=== PATIENT | female | born 1945 | race Hispanic/Latino ===

== ENCOUNTER 2019-09-23 05:54 | Day surgery (SDC) | payer OTHER, MEDICARE ==
[~2019-09-23] VITALS: Ht 144.8 cm; Wt 70.3 kg
[~2019-09-23 05:54] MED LIST: ATOR40TA71 PO; DULO30CA52 PO; ERGO500014 PO; FENO145T26 PO; FURO20TA4 PO; LATA7.5D OP; LISI2.5T2 PO; METF-444 PO; TRIA15CR48 TP
[2019-09-23] MEDS ORDERED: SODIUM CHLORIDE 0.9% 1000ML 1,000 ML IV ONE (06:20)
[2019-09-23 07:15] VITALS: BP 123/67
[2019-09-23] MEDS ORDERED: PHENYLEPHRINE HCL 10 MG/ML 1ML VIAL IV ONE (07:48)
[2019-09-23] MEDS ORDERED: PROPOFOL 10 MG/ML 20ML VIAL IV ONE (07:48)
[2019-09-23 08:43] VITALS: BP 116/52
[2019-09-23 08:48] VITALS: BP 111/68
[2019-09-23 08:53] VITALS: BP 118/62
[2019-09-23 08:58] VITALS: BP 122/68
== END 2019-09-23 09:25 | disposition home or self-care (01) ==
LOC: DAH 05:54 → ENDO 05:54
PROVIDERS: ATTEND Internal Medicine
DX: D50.9 Iron deficiency anemia, unspecified (principal); K62.1 Rectal polyp; K29.50 Unspecified chronic gastritis without bleeding; K57.30 Diverticulosis of large intestine without perforation or abscess without bleeding; F41.9 Anxiety disorder, unspecified; F32.9 Major depressive disorder, single episode, unspecified; I10 Essential (primary) hypertension; E78.5 Hyperlipidemia, unspecified; E11.9 Type 2 diabetes mellitus without complications; Z80.0 Family history of malignant neoplasm of digestive organs; Z90.710 Acquired absence of both cervix and uterus; Z98.890 Other specified postprocedural states
CPT/HCPCS: 43239; 45380; 82948 ×2; A4215; A4221; A4222; A4223; A4606; A4620; A4663; J2370; J2704; J7030

== ENCOUNTER → 2020-01-28 | Outpatient (CLI) | payer OTHER, MEDICARE | END | disposition home or self-care (01) | LOC: RAH 09:25 | PROVIDERS: ATTEND Internal Medicine Cardiovascular Disease | DX: I08.1 Rheumatic disorders of both mitral and tricuspid valves (principal); I27.29 Other secondary pulmonary hypertension | CPT/HCPCS: 93306; 93356 ==

== ENCOUNTER → 2020-03-16 | Day surgery (SDC) | payer OTHER, MEDICARE ==
[2020-03-12 13:45] VITALS: BP 99/56
[2020-03-16] VITALS (27 sets, daily range): BP systolic 103–149; BP diastolic 47–88
[~2020-03-16] VITALS: Ht 149.9 cm; Wt 72.1 kg
[~2020-03-16] MED LIST changes: +BUDE10.2 IH; +DEXTROSE 50%-WATER 50 ML DISP.SYRIN IV PRN; +ESOM40CA54 PO; +FENTANYL CITRATE PF 50 MCG/1 ML 2ML VIAL ONE; +FUROSEMIDE 10 MG/ML 4ML VIAL ONE; +GLUCAGON 1MG KIT 1 MG ML IM PRN; +HEPARIN SODIUM 1000UNIT/ML 10ML VIAL ONE; +INSULIN HUMULIN R 100 UNIT/ML 3ML SQ SCH; +IOHEXOL 350 MG/ML 100ML INFUS..BTL IV ONE; +IOHEXOL-350 50ML VIAL IV ONE; +LEVA1.255 IH; +LIDOCAINE HCL 2% 20ML ONE; +LIDOCAINE HCL 2% VISCOUS 15 ML UDCUP PO SCH; +LISI1TAB32 PO; +LISI1TAB51 PO; -LISI2.5T2 PO; +METO-391 PO; +MIDAZOLAM HCL 1 MG/ML 2ML VIAL ONE; +NITROGLYCERIN 2 MG/VIAL VIAL IV ONE; +SODIUM CHLORIDE 0.9% 1000ML 1,000 ML IV ONE; +SODIUM CHLORIDE 0.9% 500ML 500 ML IV SCH; -TRIA15CR48 TP
[2020-03-16 07:09] LABS: BASOPHILS % (AUTO) 0.8 % (0.0-5.0); EOSINOPHILS % (AUTO) 2.9 % (0.0-8.0); LYMPHOCYTES % (AUTO) 15.7 % (21.0-51.0); MEAN CORPUSCULAR HEMOGLOBIN 24.5 pg (27.0-33.0); MEAN CORPUSCULAR HGB CONC 30.3 g/dL (32.0-36.0); MONOCYTES % (AUTO) 6.5 % (3.0-13.0); NEUTROPHILS % (AUTO) 71.7 % (40.0-77.0); PLATELET COUNT (AUTO) 501 K/uL (130-400); RED BLOOD CELL COUNT(AUTO) 4.32 MIL/uL (4.00-5.50); RED CELL DISTRIBUTION WIDTH 15.5 % (11.0-15.5); WHITE BLOOD COUNT (AUTO) 9.5 K/uL (4.8-10.8)
[2020-03-16 07:15] LABS: CREATININE 1.1 mg/dL (0.5-1.5); POTASSIUM 3.8 mmol/L (3.5-5.1)
[2020-03-16 07:34] LABS: INR 1.01 (0.85-1.15); PARTIAL THROMBOPLASTIN TIME 22.7 SEC (26.3-35.5); PROTHROMBIN TIME 10.9 SEC (9.6-11.6)
--- NOTE | 2020-03-16 11:00 | NUR ---
REPORT RECEIVED REPORT FROM SOCRATES BOSE RN. PT HAD ALISHA DONE AND IS SCHEDULED FOR LHC/RHC. PT NPO, HAS SALINE LOCK TO RT HAND. PT IN NO DISTRESS. WILL TAKE OVER PATIENT CARE. CARDIOVASCULAR SURGEON STILL PENDING TO SEE.
--- NOTE | 2020-03-16 11:55 | NUR ---
TELEPHONE CONSENT RECEIVED TELEPHONE CONSENT FROM DAUGHTER TUYET ABBOTT. SECOND WITNESS ARACELI Vivar RN
--- NOTE | 2020-03-16 15:30 | NUR ---
[employer] pt taken to [employer] [employer] via bed. pt in no distress.
--- NOTE | 2020-03-16 15:41 | NUR ---
report report given to rodrick yanez rn.
--- NOTE | 2020-03-16 18:15 | NUR ---
RECEIVED FROM GEOSCIENCES PROFESSOR VIA BED ACCOMPANIED BY Pelon VELÁZQUEZ, RN AND Nirmala BOES RN. PT. AAOX3, RESP.'S EVEN AND UNLABORED. DENIES ANY C/O SOB, DENIES ANY CURRENT PAIN. INSTRUCTED ON STRICT BR PER MD ORDERS, VERBALIZED UNDERSTANDING. RIGHT GROIN WITH DRSG IN PLACE, D/I, AREA SOFT; NO ECCHYMOSIS OR HEMATOMA NOTED. FEET WARM, PP'S (+) BILATERALLY; DENIES ANY C/O NUMBNESS OR TINGLING TO FEET. BED LOW, SIDE RAILS UP X3. PLACED IN REVERSE [place] POSITION. CALL LIGHT WITHIN REACH, VERBALIZED ABILITY TO USE.
== END ==
LOC: EDSTATUS 03-11 13:00 → DAH 06:30
PROVIDERS: ATTEND Internal Medicine Cardiovascular Disease
DX: I34.2 Nonrheumatic mitral (valve) stenosis (principal); I25.10 Atherosclerotic heart disease of native coronary artery without angina pectoris; I10 Essential (primary) hypertension; E78.5 Hyperlipidemia, unspecified; E11.9 Type 2 diabetes mellitus without complications; J44.9 Chronic obstructive pulmonary disease, unspecified; Z98.890 Other specified postprocedural states; Z90.710 Acquired absence of both cervix and uterus; Z86.718 Personal history of other venous thrombosis and embolism; Z79.01 Long term (current) use of anticoagulants; Z79.84 Long term (current) use of oral hypoglycemic drugs; Z79.899 Other long term (current) drug therapy; Z95.2 Presence of prosthetic heart valve
CPT/HCPCS: 36415; 80048; 82948 ×2; 85025; 85610; 85730; 93313; 93460; A4215; A4216; A4221; A4222; A4223 ×3; A4606; A4663; C1760; C1894 ×2; J1644; J1940; J2250; J3010; J3490 ×2; J7030; Q9965; Q9967 ×2; 99152; 99153; 99156; 99157

== ENCOUNTER 2020-05-25 15:59 | Inpatient (IN) | payer OTHER, MEDICARE ==
[~2020-05-25] VITALS: Ht 157.5 cm; Wt 65.4 kg
[2020-05-25] VITALS (11 sets, daily range): BP systolic 78–150; BP diastolic 42–84
[~2020-05-25 15:59] MED LIST changes: -DEXTROSE 50%-WATER 50 ML DISP.SYRIN IV PRN; +DIPH25TA51 PO; -ERGO500014 PO; -FENTANYL CITRATE PF 50 MCG/1 ML 2ML VIAL ONE; +FURO40TA7 PO; -FUROSEMIDE 10 MG/ML 4ML VIAL ONE; -GLUCAGON 1MG KIT 1 MG ML IM PRN; -HEPARIN SODIUM 1000UNIT/ML 10ML VIAL ONE; -INSULIN HUMULIN R 100 UNIT/ML 3ML SQ SCH; -IOHEXOL 350 MG/ML 100ML INFUS..BTL IV ONE; -IOHEXOL-350 50ML VIAL IV ONE; -LIDOCAINE HCL 2% 20ML ONE; -LIDOCAINE HCL 2% VISCOUS 15 ML UDCUP PO SCH; -LISI1TAB32 PO; -MIDAZOLAM HCL 1 MG/ML 2ML VIAL ONE; -NITROGLYCERIN 2 MG/VIAL VIAL IV ONE; -SODIUM CHLORIDE 0.9% 1000ML 1,000 ML IV ONE; -SODIUM CHLORIDE 0.9% 500ML 500 ML IV SCH
[2020-05-25 16:31] LABS: BASOPHILS % (AUTO) 0.3 % (0.0-5.0); HEMATOCRIT 25.4 % (36-48); LYMPHOCYTES % (AUTO) 11.6 % (21.0-51.0); MEAN CORPUSCULAR HEMOGLOBIN 29.3 pg (27.0-33.0); MEAN CORPUSCULAR HGB CONC 30.3 g/dL (32.0-36.0); MEAN CORPUSCULAR VOLUME 96.6 fL (79-99); MONOCYTES % (AUTO) 4.4 % (3.0-13.0); NEUTROPHILS % (AUTO) 76.1 % (40.0-77.0); PLATELET COUNT (AUTO) 377 K/uL (130-400); RED BLOOD CELL COUNT(AUTO) 2.63 MIL/uL (4.00-5.50); RED CELL DISTRIBUTION WIDTH 18.1 % (11.0-15.5); WHITE BLOOD COUNT (AUTO) 17.3 K/uL (4.8-10.8)
[2020-05-25 16:41] LABS: CREATININE 1.6 mg/dL (0.5-1.5); POTASSIUM 5.2 mmol/L (3.5-5.1)
[2020-05-25 16:45] LABS: INR 1.18 (0.85-1.15); PARTIAL THROMBOPLASTIN TIME 22.2 SEC (26.3-35.5); PROTHROMBIN TIME 12.7 SEC (9.6-11.6)
[2020-05-25 16:46] LABS: ALBUMIN 1.3 g/dL (3.5-5.0); BILIRUBIN,TOTAL 0.2 mg/dL (0.2-1.0); TOTAL PROTEIN, SERUM 4.9 g/dL (6.0-8.3)
[2020-05-25] MEDS ORDERED: ROCURONIUM 10MG/1ML SYR 10 MG/ML ML ONE ×2 (16:53→18:27)
[2020-05-25] MEDS ORDERED: SUCCINYLCHOLINE CHLORIDE 20 MG/ML 10 ML VIAL ONE (17:21)
[2020-05-25] MEDS ORDERED: ETOMIDATE 2 MG/ML 10 ML VIAL ONE (17:21)
[2020-05-25] MEDS ORDERED: SODIUM BICARB 50MEQ 50ML VIAL 250 ML ONE (17:22)
[2020-05-25] MEDS ORDERED: CEFAZOLIN SODIUM 1 GM VIAL ONE (17:32)
[2020-05-25] MEDS ORDERED: FENTANYL CITRATE PF 50 MCG/1 ML 5ML AMP IV ONE ×2 (18:27→18:42)
[2020-05-25] MEDS ORDERED: VANCOMYCIN PROTOCOL PER PHARMACY IV SCH (19:15)
[2020-05-25] MEDS ORDERED: PROPOFOL 1000 MG/100 ML IV PRN (19:15)
[2020-05-25] MEDS ORDERED: COMPOUND IV REFRIGERATED 1 EACH IVSOLN MISC PRN (20:00)
[2020-05-25] MEDS ORDERED: VANCOMYCIN 1.5 GM in SODIUM CHLORIDE 0.9% 250 ML IV ONE (20:00)
[2020-05-25 20:44] LABS: HEMATOCRIT 39.9 % (36-48); MEAN CORPUSCULAR HEMOGLOBIN 28.9 pg (27.0-33.0); MEAN CORPUSCULAR HGB CONC 33.3 g/dL (32.0-36.0); MEAN CORPUSCULAR VOLUME 86.6 fL (79-99); NUCLEATED RED BLOOD CELLS 0.9 % (0.0-0.19); RED BLOOD CELL COUNT(AUTO) 4.61 MIL/uL (4.00-5.50); RED CELL DISTRIBUTION WIDTH 15.7 % (11.0-15.5); WHITE BLOOD COUNT (AUTO) 16.1 K/uL (4.8-10.8)
[2020-05-25] MEDS ORDERED: EPINEPHRINE 10 MG in SODIUM CHLORIDE 0.9% 250 ML IV SCH ×2 (20:45→21:00)
[2020-05-25 20:52] LABS: CREATININE 1.2 mg/dL (0.5-1.5); POTASSIUM 4.5 mmol/L (3.5-5.1)
[2020-05-25 20:59] LABS: INR 1.26 (0.85-1.15); PROTHROMBIN TIME 13.5 SEC (9.6-11.6)
[2020-05-25 21:08] LABS: PARTIAL THROMBOPLASTIN TIME > 120.0 SEC (26.3-35.5)
[2020-05-25] MEDS: PROPOFOL 1000 MG/100 ML 100 ML IV SCH (21:24)
[2020-05-25 21:34] LABS: ABG BASE EXCESS 3.5 mmol/L (-2.0-3.0); ABG HCO3 26.6 mmol/L (21.0-28.0); ABG OXYGEN SATURATION 96.6 % (95.0-99.0); ABG PCO2 35 mmHg (32-45)
[2020-05-25 21:35] LABS: ABG BASE EXCESS 1.6 mmol/L (-2.0-3.0); ABG HCO3 25.8 mmol/L (21.0-28.0); ABG OXYGEN SATURATION 98.7 % (95.0-99.0); ABG PCO2 39 mmHg (32-45)
[2020-05-25 21:35] LABS: ABG BASE EXCESS 14.4 mmol/L (-2.0-3.0); ABG HCO3 38.6 mmol/L (21.0-28.0); ABG OXYGEN SATURATION 98.2 % (95.0-99.0); ABG PCO2 48 mmHg (32-45)
[2020-05-25 21:35] LABS: ABG BASE EXCESS 4.9 mmol/L (-2.0-3.0); ABG HCO3 28.7 mmol/L (21.0-28.0); ABG OXYGEN SATURATION 97.8 % (95.0-99.0); ABG PCO2 39 mmHg (32-45)
[2020-05-25] MEDS: FLUCONAZOLE 200 MG/NS 100 ML 100 ML IV SCH (21:37)
[2020-05-25 22:45] LABS: APPEARANCE,URINE Clear (CLEAR); BILIRUBIN,URINE Negative (NEGATIVE); COLOR,URINE Yellow (YELLOW); GLUCOSE, URINE (UA) Negative (NEGATIVE); KETONES,URINE Negative (NEGATIVE); LEUKOCYTE ESTERASE ,URINE Small (NEGATIVE); NITRATE,URINE Negative (NEGATIVE); OCCULT BLOOD,URINE Negative (NEGATIVE); PH,URINE 6.5 (5.0-8.0); PROTEIN,URINE POS 1+ mg/dL (NEGATIVE); UROBILINOGEN,URINE 0.2 mg/dL (0.2-1.0)
[2020-05-25 22:59] LABS: BACTERIA,URINE Few /HPF (None Seen); RBC,URINE 0-1 /HPF (0-1)
[2020-05-25 23:00] LABS: FINE GRANULAR CASTS,URINE 0-2 /LPF (None Seen); SQUAMOUS EPITHELIAL CELL,UR 0-2 /HPF (0-2); URIC ACID CRYSTALS,URINE Few /LPF (None Seen); YEAST,URINE BUDDING Few /HPF (None Seen)
[2020-05-25] MEDS ORDERED: ONDANSETRON HCL 4 MG/2 ML VIAL IV PRN (23:45)
[2020-05-26] VITALS (45 sets, daily range): BP systolic 87–162; BP diastolic 50–69
[2020-05-26] MEDS: PROPOFOL 1000 MG/100 ML 100 ML IV SCH ×3 (03:37→21:47)
[2020-05-26] MEDS ORDERED: DEXTROSE 50%-WATER 50 ML DISP.SYRIN IV PRN (04:00)
[2020-05-26] MEDS ORDERED: GLUCAGON 1MG KIT 1 MG ML IM PRN (04:00)
[2020-05-26 06:03] LABS: BASOPHILS % (AUTO) 0.2 % (0.0-5.0); HEMATOCRIT 37.3 % (36-48); LYMPHOCYTES % (AUTO) 7.4 % (21.0-51.0); MEAN CORPUSCULAR HGB CONC 34.3 g/dL (32.0-36.0); MEAN CORPUSCULAR VOLUME 84.6 fL (79-99); NEUTROPHILS % (AUTO) 77.2 % (40.0-77.0); NUCLEATED RED BLOOD CELLS 2.9 % (0.0-0.19); PLATELET COUNT (AUTO) 280 K/uL (130-400); RED BLOOD CELL COUNT(AUTO) 4.41 MIL/uL (4.00-5.50); WHITE BLOOD COUNT (AUTO) 25.7 K/uL (4.8-10.8)
[2020-05-26 06:20] LABS: ALBUMIN 1.3 g/dL (3.5-5.0); BILIRUBIN,TOTAL 0.4 mg/dL (0.2-1.0); CREATININE 1.7 mg/dL (0.5-1.5); MAGNESIUM 1.5 mg/dL (1.80-2.40); POTASSIUM 4.8 mmol/L (3.5-5.1); TOTAL PROTEIN, SERUM 4.4 g/dL (6.0-8.3)
[2020-05-26] MEDS: INSULIN HUMULIN R 100 UNIT/ML 3ML SQ SCH ×4 (06:29→23:43)
[2020-05-26 06:30] LABS: INR 1.14 (0.85-1.15); PARTIAL THROMBOPLASTIN TIME 22.9 SEC (26.3-35.5); PROTHROMBIN TIME 12.2 SEC (9.6-11.6)
[2020-05-26 06:55] LABS: BAND NEUTROPHILS % (MANUAL) 3 % (0-2); LYMPHOCYTES % (MANUAL) 4 % (22-44); MAN.DIFF COMMENT-IMPRESSION MANUAL DIFFERENTIAL; MONOCYTES % (MANUAL) 2 % (2-9); PLATELET MORPHOLOGY COMMENT ADEQUATE; REACTIVE LYMPHOCYTES 9 % (0-0); SEGMENTED NEUTROPHILS % 82 % (40-70)
[2020-05-26] MEDS ORDERED: MAGNESIUM 2GM PREMIX 50ML 50 ML IV ONE (07:20)
[2020-05-26 08:53] LABS: ABG BASE EXCESS 3.2 mmol/L (-2.0-3.0); ABG HCO3 26.8 mmol/L (21.0-28.0); ABG OXYGEN SATURATION 89.2 % (95.0-99.0); ABG PCO2 38 mmHg (32-45)
[2020-05-26] MEDS: FLUCONAZOLE 200 MG/NS 100 ML 100 ML IV SCH (10:43)
[2020-05-26] MEDS: FAMOTIDINE/PF 20 MG/2 ML VIAL IV SCH (10:48)
[2020-05-26] MEDS: FUROSEMIDE 10 MG/ML 4ML VIAL IV SCH ×2 (10:49→21:44)
[2020-05-26] MEDS ORDERED: ASPIRIN 325 MG TABLET PO SCH (15:15)
[2020-05-26] MEDS: HONEY 1 APPL/ML TUBE TP SCH (16:37)
[2020-05-26] MEDS ORDERED: MORPHINE SULFATE 2 MG/ML 1ML SYG IM PRN (18:00)
[2020-05-26 18:26] LABS: APPEARANCE,URINE CLOUDY (CLEAR); BILIRUBIN,URINE NEGATIVE (NEGATIVE); COLOR,URINE YELLOW (YELLOW); GLUCOSE, URINE (UA) NEGATIVE (NEGATIVE); KETONES,URINE NEGATIVE (NEGATIVE); LEUKOCYTE ESTERASE ,URINE MODERATE (NEGATIVE); NITRATE,URINE NEGATIVE (NEGATIVE); OCCULT BLOOD,URINE NEGATIVE (NEGATIVE); PH,URINE 5.5 (5.0-8.0); PROTEIN,URINE NEGATIVE (NEGATIVE); UROBILINOGEN,URINE 0.2 mg/dL (0.2-1.0)
[2020-05-26 18:53] LABS: BACTERIA,URINE Few /HPF (None Seen); RBC,URINE 0-1 /HPF (0-1)
[2020-05-26 18:55] LABS: SQUAMOUS EPITHELIAL CELL,UR Few /HPF (0-2); YEAST,URINE BUDDING Few /HPF (None Seen)
[2020-05-26 18:56] LABS: MUCUS,URINE Rare LPF (None Seen)
[2020-05-26 18:57] LABS: CALCIUM OXALATE CRYSTALS,UR Rare /LPF (None Seen)
[2020-05-26] MEDS: ZOSYN 3.375GM+NS 50ML 50 ML IV SCH (19:13)
[2020-05-26] MEDS: VANCOMYCIN 750MG + NS 250 ML IV SCH ×2 (19:14)
[2020-05-26] MEDS ORDERED: LATANOPROST 2.5 ML DROPS OU SCH (21:00)
[2020-05-26] MEDS: LATANOPROST OP SCH (21:43)
[2020-05-26] MEDS: ATORVASTATIN CALCIUM 40 MG TABLET PO SCH (21:43)
[2020-05-27] VITALS (18 sets, daily range): BP systolic 94–166; BP diastolic 32–67
[2020-05-27] MEDS: PROPOFOL 1000 MG/100 ML 100 ML IV SCH ×2 (03:55→11:27)
[2020-05-27 05:09] LABS: ABG BASE EXCESS 0.1 mmol/L (-2.0-3.0); ABG OXYGEN SATURATION 95.9 % (95.0-99.0); ABG PCO2 33 mmHg (32-45)
[2020-05-27] MEDS: ZOSYN 3.375GM+NS 50ML 50 ML IV SCH ×2 (05:19→18:24)
[2020-05-27 05:22] LABS: MEAN CORPUSCULAR HEMOGLOBIN 29.5 pg (27.0-33.0); MEAN CORPUSCULAR HGB CONC 33.2 g/dL (32.0-36.0); MEAN CORPUSCULAR VOLUME 88.8 fL (79-99); NUCLEATED RED BLOOD CELLS 1.9 % (0.0-0.19); RED BLOOD CELL COUNT(AUTO) 3.49 MIL/uL (4.00-5.50); RED CELL DISTRIBUTION WIDTH 17.8 % (11.0-15.5); WHITE BLOOD COUNT (AUTO) 18.5 K/uL (4.8-10.8)
[2020-05-27] MEDS: INSULIN HUMULIN R 100 UNIT/ML 3ML SQ SCH ×3 (05:23→18:00)
[2020-05-27 05:29] LABS: CREATININE 1.7 mg/dL (0.5-1.5); POTASSIUM 4.2 mmol/L (3.5-5.1)
[2020-05-27] MEDS ORDERED: ASPIRIN 325 MG TABLET PO SCH (09:00)
[2020-05-27] MEDS ORDERED: HEPARIN 25000 UNITS/250 ML D5W 250 ML IV SCH (10:00)
[2020-05-27] MEDS ORDERED: HEPARIN SODIUM 5000UNIT/ML 1ML VIAL ONE (11:15)
[2020-05-27] MEDS: FLUCONAZOLE 200 MG/NS 100 ML 100 ML IV SCH (11:18)
[2020-05-27] MEDS: FUROSEMIDE 10 MG/ML 4ML VIAL IV SCH ×2 (11:19→22:18)
[2020-05-27] MEDS: FAMOTIDINE/PF 20 MG/2 ML VIAL IV SCH (11:19)
[2020-05-27] MEDS ORDERED: FENTANYL CITRATE PF 0.05 MG/ML 1,000 MCG in SODIUM CHLORIDE 0.9% 100 ML IVPB SCH (14:00)
[2020-05-27] MEDS ORDERED: FENTANYL 2500MCG+NS 250ML 250 ML IV SCH (14:15)
[2020-05-27] MEDS ORDERED: MIDAZOLAM HCL 1 MG/ML 5ML VIAL ONE (14:33)
[2020-05-27] MEDS ORDERED: ROCURONIUM 10MG/1ML SYR 10 MG/ML ML ONE ×2 (14:34→14:50)
[2020-05-27] MEDS ORDERED: FENTANYL CITRATE PF 50 MCG/1 ML 5ML AMP IV ONE (15:24)
[2020-05-27 15:40] LABS: ABG BASE EXCESS 2.2 mmol/L (-2.0-3.0); ABG OXYGEN SATURATION 92.7 % (95.0-99.0); ABG PCO2 37 mmHg (32-45)
[2020-05-27] MEDS: HONEY 1 APPL/ML TUBE TP SCH (16:00)
[2020-05-27] MEDS ORDERED: CEFAZOLIN SODIUM 1 GM VIAL ONE (16:23)
[2020-05-27] MEDS ORDERED: PROTAMINE SULFATE 10 MG/ML 5 ML VIAL ONE (16:25)
[2020-05-27] MEDS: VANCOMYCIN 750MG + NS 250 ML IV SCH ×2 (18:24)
[2020-05-27 20:19] LABS: APPEARANCE,URINE Cloudy (CLEAR); BILIRUBIN,URINE Negative (NEGATIVE); COLOR,URINE Yellow (YELLOW); GLUCOSE, URINE (UA) Negative (NEGATIVE); KETONES,URINE Negative (NEGATIVE); LEUKOCYTE ESTERASE ,URINE Small (NEGATIVE); NITRATE,URINE Negative (NEGATIVE); OCCULT BLOOD,URINE Large (NEGATIVE); PROTEIN,URINE Negative (NEGATIVE); UROBILINOGEN,URINE 0.2 mg/dL (0.2-1.0)
[2020-05-27 20:49] LABS: BACTERIA,URINE Few /HPF (None Seen); MUCUS,URINE Few LPF (None Seen); SQUAMOUS EPITHELIAL CELL,UR 0-2 /HPF (0-2); YEAST,URINE BUDDING Moderate /HPF (None Seen)
[2020-05-27] MEDS: CLOPIDOGREL BISULFATE 75 MG TAB PO SCH (22:19)
[2020-05-27] MEDS: LATANOPROST OP SCH (22:19)
[2020-05-27] MEDS: ATORVASTATIN CALCIUM 40 MG TABLET PO SCH (22:19)
[2020-05-28] MEDS: PROPOFOL 1000 MG/100 ML 100 ML IV SCH (01:01)
[2020-05-28] MEDS: INSULIN HUMULIN R 100 UNIT/ML 3ML SQ SCH ×4 (06:00→18:00)
[2020-05-28 07:42] LABS: BASOPHILS % (AUTO) 0.5 % (0.0-5.0); EOSINOPHILS % (AUTO) 0.1 % (0.0-8.0); HEMATOCRIT 29.2 % (36-48); LYMPHOCYTES % (AUTO) 8.2 % (21.0-51.0); MEAN CORPUSCULAR HEMOGLOBIN 29.4 pg (27.0-33.0); MEAN CORPUSCULAR HGB CONC 31.2 g/dL (32.0-36.0); MEAN CORPUSCULAR VOLUME 94.2 fL (79-99); MONOCYTES % (AUTO) 5.7 % (3.0-13.0); NUCLEATED RED BLOOD CELLS 1.8 % (0.0-0.19); PLATELET COUNT (AUTO) 122 K/uL (130-400); RED CELL DISTRIBUTION WIDTH 18.7 % (11.0-15.5); WHITE BLOOD COUNT (AUTO) 17.8 K/uL (4.8-10.8)
[2020-05-28 07:55] LABS: CREATININE 1.4 mg/dL (0.5-1.5); POTASSIUM 4.4 mmol/L (3.5-5.1)
[2020-05-28] MEDS: FAMOTIDINE/PF 20 MG/2 ML VIAL IV SCH (09:45)
[2020-05-28] MEDS: ZOSYN 3.375GM+NS 50ML 50 ML IV SCH ×2 (09:45→18:00)
[2020-05-28] MEDS: CLOPIDOGREL BISULFATE 75 MG TAB PO SCH (09:45)
[2020-05-28] MEDS: FLUCONAZOLE 200 MG/NS 100 ML 100 ML IV SCH (09:45)
[2020-05-28] MEDS: FUROSEMIDE 10 MG/ML 4ML VIAL IV SCH ×2 (09:45→21:21)
[2020-05-28 11:02] LABS: ABG BASE EXCESS -0.1 mmol/L (-2.0-3.0); ABG HCO3 23.5 mmol/L (21.0-28.0); ABG OXYGEN SATURATION 90.5 % (95.0-99.0); ABG PCO2 35 mmHg (32-45)
[2020-05-28] MEDS ORDERED: IPRATROPIUM/ALBUTEROL SULFATE 3 ML SOLUTION IH ONE (11:17)
[2020-05-28] MEDS ORDERED: COMPOUND IV REFRIGERATED 1 EACH IVSOLN MISC PRN (12:15)
[2020-05-28] MEDS ORDERED: FENTANYL CITRATE PF 50 MCG/1 ML 2ML VIAL IVP PRN (14:00)
[2020-05-28] MEDS ORDERED: TRAMADOL HCL 50 MG TABLET PO PRN (14:00)
[2020-05-28] MEDS: CLINIMIX E 5%-15% 2,000 ML IV NR (14:07)
[2020-05-28] MEDS ORDERED: FENTANYL 2500MCG+NS 250ML 250 ML IV SCH (14:15)
[2020-05-28] MEDS: FENTANYL CITRATE PF 50 MCG/1 ML 2ML VIAL IVP PRN (14:37)
[2020-05-28] MEDS: HONEY 1 APPL/ML TUBE TP SCH (17:04)
[2020-05-28 19:55] VITALS: BP 120/72
[2020-05-28] MEDS: LATANOPROST OP SCH (20:30)
[2020-05-28] MEDS: ATORVASTATIN CALCIUM 40 MG TABLET PO SCH (20:31)
[2020-05-28] MEDS: VANCOMYCIN 750MG + NS 250 ML IV SCH ×2 (20:32)
[2020-05-28 20:55] VITALS: BP 130/79
[2020-05-28] MEDS ORDERED: SODIUM CHLORIDE 0.9% 250 ML IV ONE (21:17)
[2020-05-28 21:55] VITALS: BP 116/57
[2020-05-28 22:55] VITALS: BP 125/64
[2020-05-28 23:55] VITALS: BP 118/55
[2020-05-29] VITALS (20 sets, daily range): BP systolic 99–143; BP diastolic 49–98
[2020-05-29 00:41] LABS: ABG BASE EXCESS 2.2 mmol/L (-2.0-3.0); ABG HCO3 26.2 mmol/L (21.0-28.0); ABG OXYGEN SATURATION 96.3 % (95.0-99.0); ABG PCO2 39 mmHg (32-45)
[2020-05-29] MEDS: FENTANYL CITRATE PF 50 MCG/1 ML 2ML VIAL IVP PRN ×3 (02:18→12:03)
[2020-05-29 04:20] LABS: ABG BASE EXCESS 1.5 mmol/L (-2.0-3.0); ABG HCO3 25.1 mmol/L (21.0-28.0); ABG OXYGEN SATURATION 97.9 % (95.0-99.0); ABG PCO2 36 mmHg (32-45)
[2020-05-29] MEDS: ZOSYN 3.375GM+NS 50ML 50 ML IV SCH ×2 (05:08→17:23)
[2020-05-29] MEDS: INSULIN HUMULIN R 100 UNIT/ML 3ML SQ SCH ×4 (05:42→16:43)
[2020-05-29 05:53] LABS: BASOPHILS % (AUTO) 0.3 % (0.0-5.0); EOSINOPHILS % (AUTO) 0.2 % (0.0-8.0); HEMATOCRIT 27.2 % (36-48); LYMPHOCYTES % (AUTO) 7.3 % (21.0-51.0); MEAN CORPUSCULAR HEMOGLOBIN 29.2 pg (27.0-33.0); MEAN CORPUSCULAR HGB CONC 30.9 g/dL (32.0-36.0); MEAN CORPUSCULAR VOLUME 94.4 fL (79-99); MONOCYTES % (AUTO) 5.6 % (3.0-13.0); NEUTROPHILS % (AUTO) 81.7 % (40.0-77.0); NUCLEATED RED BLOOD CELLS 1.6 % (0.0-0.19); PLATELET COUNT (AUTO) 115 K/uL (130-400); RED BLOOD CELL COUNT(AUTO) 2.88 MIL/uL (4.00-5.50); RED CELL DISTRIBUTION WIDTH 18.8 % (11.0-15.5); WHITE BLOOD COUNT (AUTO) 16.3 K/uL (4.8-10.8)
[2020-05-29 06:22] LABS: CREATININE 1.1 mg/dL (0.5-1.5); POTASSIUM 3.2 mmol/L (3.5-5.1)
[2020-05-29] MEDS: CLOPIDOGREL BISULFATE 75 MG TAB PO SCH (07:58)
[2020-05-29] MEDS: ASPIRIN 81MG TAB.CHEW PO SCH (07:59)
[2020-05-29] MEDS: FLUCONAZOLE 200 MG/NS 100 ML 100 ML IV SCH (07:59)
[2020-05-29] MEDS: FAMOTIDINE/PF 20 MG/2 ML VIAL IV SCH (07:59)
[2020-05-29] MEDS: CLINIMIX E 5%-15% 2,000 ML IV NR (09:00)
[2020-05-29] MEDS ORDERED: LIDOCAINE HCL-MPF 1% 2ML VIAL IV PRN (09:45)
[2020-05-29] MEDS ORDERED: POTASSIUM CHLORIDE 20MEQ/100ML 100 ML IV ONE (10:05)
[2020-05-29] MEDS: FUROSEMIDE 10 MG/ML 4ML VIAL IV SCH ×2 (10:12→22:15)
[2020-05-29] MEDS: POTASSIUM CHLORIDE 20MEQ/100ML 100 ML IV PRN ×3 (14:01→22:16)
[2020-05-29] MEDS ORDERED: CLINIMIX E 5%-15% 2,000 ML IV ONE (15:00)
[2020-05-29] MEDS: HONEY 1 APPL/ML TUBE TP SCH (16:41)
[2020-05-29] MEDS: VANCOMYCIN 750MG + NS 250 ML IV SCH ×2 (17:53)
[2020-05-29] MEDS: ATORVASTATIN CALCIUM 40 MG TABLET PO SCH (20:20)
[2020-05-29] MEDS: LATANOPROST OP SCH (20:21)
[2020-05-30] VITALS (20 sets, daily range): BP systolic 98–123; BP diastolic 42–78
[2020-05-30] MEDS: TRAMADOL HCL 50 MG TABLET PO PRN ×4 (01:19→21:08)
[2020-05-30 05:16] LABS: BASOPHILS % (AUTO) 0.4 % (0.0-5.0); EOSINOPHILS % (AUTO) 2.3 % (0.0-8.0); HEMATOCRIT 23.9 % (36-48); LYMPHOCYTES % (AUTO) 6.8 % (21.0-51.0); MEAN CORPUSCULAR HEMOGLOBIN 29.3 pg (27.0-33.0); MEAN CORPUSCULAR HGB CONC 30.1 g/dL (32.0-36.0); MEAN CORPUSCULAR VOLUME 97.2 fL (79-99); MONOCYTES % (AUTO) 6.3 % (3.0-13.0); NEUTROPHILS % (AUTO) 78.2 % (40.0-77.0); NUCLEATED RED BLOOD CELLS 1.3 % (0.0-0.19); PLATELET COUNT (AUTO) 98 K/uL (130-400); RED BLOOD CELL COUNT(AUTO) 2.46 MIL/uL (4.00-5.50); RED CELL DISTRIBUTION WIDTH 18.9 % (11.0-15.5)
[2020-05-30 05:43] LABS: BILIRUBIN,TOTAL 0.4 mg/dL (0.2-1.0); CREATININE 0.7 mg/dL (0.5-1.5); MAGNESIUM 1.6 mg/dL (1.80-2.40); TOTAL PROTEIN, SERUM 4.6 g/dL (6.0-8.3)
[2020-05-30] MEDS: INSULIN HUMULIN R 100 UNIT/ML 3ML SQ SCH ×4 (06:00→18:00)
[2020-05-30] MEDS: ZOSYN 3.375GM+NS 50ML 50 ML IV SCH ×3 (06:10→21:00)
[2020-05-30] MEDS: FLUCONAZOLE 200 MG/NS 100 ML 100 ML IV SCH (08:04)
[2020-05-30] MEDS: FAMOTIDINE/PF 20 MG/2 ML VIAL IV SCH (08:04)
[2020-05-30] MEDS: ASPIRIN 81MG TAB.CHEW PO SCH (09:00)
[2020-05-30] MEDS: CLOPIDOGREL BISULFATE 75 MG TAB PO SCH (09:00)
[2020-05-30] MEDS: FUROSEMIDE 10 MG/ML 4ML VIAL IV SCH ×2 (09:34→21:07)
[2020-05-30] MEDS ORDERED: SODIUM CHLORIDE 0.9% 250 ML IV SCH (10:30)
[2020-05-30] MEDS: FENTANYL CITRATE PF 50 MCG/1 ML 2ML VIAL IVP PRN (16:07)
[2020-05-30] MEDS: VANCOMYCIN 750MG + NS 250 ML IV SCH ×2 (16:27)
[2020-05-30] MEDS: HONEY 1 APPL/ML TUBE TP SCH (16:27)
[2020-05-30] MEDS ORDERED: FUROSEMIDE 10 MG/ML 4ML VIAL IVP SCH (16:55)
[2020-05-30] MEDS ORDERED: NOREPINEPHRINE 4MG/NS 250ML 250 ML IV SCH (17:30)
[2020-05-30] MEDS ORDERED: CLINIMIX E 5%-15% 2,000 ML IV ONE (18:30)
[2020-05-30] MEDS: ATORVASTATIN CALCIUM 40 MG TABLET PO SCH (21:00)
[2020-05-30] MEDS: LATANOPROST OP SCH (21:00)
[2020-05-30 23:00] LABS: HEMATOCRIT 26.2 % (36-48); MEAN CORPUSCULAR HEMOGLOBIN 29.1 pg (27.0-33.0); MEAN CORPUSCULAR HGB CONC 31.3 g/dL (32.0-36.0); MEAN CORPUSCULAR VOLUME 92.9 fL (79-99); NUCLEATED RED BLOOD CELLS 1.6 % (0.0-0.19); RED BLOOD CELL COUNT(AUTO) 2.82 MIL/uL (4.00-5.50); RED CELL DISTRIBUTION WIDTH 19.9 % (11.0-15.5); WHITE BLOOD COUNT (AUTO) 13.5 K/uL (4.8-10.8)
[2020-05-31] VITALS (24 sets, daily range): BP systolic 94–142; BP diastolic 37–95
[2020-05-31 03:34] LABS: BASOPHILS % (AUTO) 0.5 % (0.0-5.0); EOSINOPHILS % (AUTO) 2.6 % (0.0-8.0); HEMATOCRIT 26.2 % (36-48); LYMPHOCYTES % (AUTO) 8.3 % (21.0-51.0); MEAN CORPUSCULAR HEMOGLOBIN 28.7 pg (27.0-33.0); MEAN CORPUSCULAR HGB CONC 30.5 g/dL (32.0-36.0); MEAN CORPUSCULAR VOLUME 93.9 fL (79-99); MONOCYTES % (AUTO) 6.6 % (3.0-13.0); NEUTROPHILS % (AUTO) 74.8 % (40.0-77.0); NUCLEATED RED BLOOD CELLS 1.2 % (0.0-0.19); PLATELET COUNT (AUTO) 132 K/uL (130-400); RED BLOOD CELL COUNT(AUTO) 2.79 MIL/uL (4.00-5.50); RED CELL DISTRIBUTION WIDTH 19.7 % (11.0-15.5); WHITE BLOOD COUNT (AUTO) 13.7 K/uL (4.8-10.8)
[2020-05-31 03:54] LABS: ALBUMIN 1.1 g/dL (3.5-5.0); BILIRUBIN,TOTAL 0.4 mg/dL (0.2-1.0); CREATININE 0.6 mg/dL (0.5-1.5); PHOSPHORUS 2.7 mg/dL (2.5-4.9); POTASSIUM 3.6 mmol/L (3.5-5.1)
[2020-05-31 04:28] LABS: ABG BASE EXCESS 3.4 mmol/L (-2.0-3.0); ABG HCO3 30.2 mmol/L (21.0-28.0); ABG OXYGEN SATURATION 95.8 % (95.0-99.0); ABG PCO2 55 mmHg (32-45)
[2020-05-31] MEDS: POTASSIUM CHLORIDE 20MEQ/100ML 100 ML IV PRN ×2 (04:32→08:25)
[2020-05-31] MEDS: INSULIN HUMULIN R 100 UNIT/ML 3ML SQ SCH ×4 (06:00→17:16)
[2020-05-31] MEDS: ZOSYN 3.375GM+NS 50ML 50 ML IV SCH ×3 (06:07→21:09)
[2020-05-31] MEDS: FAMOTIDINE/PF 20 MG/2 ML VIAL IV SCH (08:22)
[2020-05-31] MEDS: FUROSEMIDE 10 MG/ML 4ML VIAL IV SCH ×2 (08:22→21:09)
[2020-05-31] MEDS: ASPIRIN 81MG TAB.CHEW PO SCH (08:25)
[2020-05-31] MEDS: FLUCONAZOLE 200 MG/NS 100 ML 100 ML IV SCH (08:25)
[2020-05-31] MEDS: TRAMADOL HCL 50 MG TABLET PO PRN ×3 (08:40→21:34)
[2020-05-31] MEDS: CLOPIDOGREL BISULFATE 75 MG TAB PO SCH (09:00)
[2020-05-31] MEDS: MORPHINE SULFATE 20MG/ML ORAL 0.25 ML PO SCH ×2 (12:00→21:00)
[2020-05-31] MEDS: HONEY 1 APPL/ML TUBE TP SCH (16:57)
[2020-05-31] MEDS: VANCOMYCIN 750MG + NS 250 ML IV SCH ×2 (17:21)
[2020-05-31 18:29] LABS: INR 1.06 (0.85-1.15); PARTIAL THROMBOPLASTIN TIME 27.1 SEC (26.3-35.5); PROTHROMBIN TIME 11.4 SEC (9.6-11.6)
[2020-05-31] MEDS: ATORVASTATIN CALCIUM 40 MG TABLET PO SCH (21:08)
[2020-05-31] MEDS: LATANOPROST OP SCH (21:26)
[2020-06-01] VITALS (22 sets, daily range): BP systolic 91–153; BP diastolic 40–81
[2020-06-01] MEDS: FENTANYL CITRATE PF 50 MCG/1 ML 2ML VIAL IVP PRN ×2 (01:53→09:45)
[2020-06-01 04:20] LABS: BASOPHILS % (AUTO) 0.4 % (0.0-5.0); EOSINOPHILS % (AUTO) 0.9 % (0.0-8.0); HEMATOCRIT 25.8 % (36-48); LYMPHOCYTES % (AUTO) 6.6 % (21.0-51.0); MEAN CORPUSCULAR HGB CONC 30.2 g/dL (32.0-36.0); MEAN CORPUSCULAR VOLUME 95.9 fL (79-99); MONOCYTES % (AUTO) 6.7 % (3.0-13.0); NEUTROPHILS % (AUTO) 79.9 % (40.0-77.0); NUCLEATED RED BLOOD CELLS 0.3 % (0.0-0.19); PLATELET COUNT (AUTO) 199 K/uL (130-400); RED BLOOD CELL COUNT(AUTO) 2.69 MIL/uL (4.00-5.50); RED CELL DISTRIBUTION WIDTH 19.3 % (11.0-15.5); WHITE BLOOD COUNT (AUTO) 14.9 K/uL (4.8-10.8)
[2020-06-01 04:40] LABS: BILIRUBIN,TOTAL 0.4 mg/dL (0.2-1.0); CREATININE 0.6 mg/dL (0.5-1.5); MAGNESIUM 2.6 mg/dL (1.80-2.40); PHOSPHORUS 2.7 mg/dL (2.5-4.9); TOTAL PROTEIN, SERUM 5.1 g/dL (6.0-8.3)
[2020-06-01] MEDS: ZOSYN 3.375GM+NS 50ML 50 ML IV SCH ×3 (05:47→20:47)
[2020-06-01] MEDS: INSULIN HUMULIN R 100 UNIT/ML 3ML SQ SCH ×4 (05:49→16:07)
[2020-06-01] MEDS: ASPIRIN 81MG TAB.CHEW PO SCH (08:12)
[2020-06-01] MEDS: MORPHINE SULFATE 20MG/ML ORAL 0.25 ML PO SCH ×2 (08:12→21:00)
[2020-06-01] MEDS: CLOPIDOGREL BISULFATE 75 MG TAB PO SCH (08:12)
[2020-06-01] MEDS: FLUCONAZOLE 200 MG/NS 100 ML 100 ML IV SCH (08:16)
[2020-06-01] MEDS: FUROSEMIDE 10 MG/ML 4ML VIAL IV SCH ×2 (08:17→10:36)
[2020-06-01] MEDS: FAMOTIDINE/PF 20 MG/2 ML VIAL IV SCH (08:17)
[2020-06-01] MEDS: HONEY 1 APPL/ML TUBE TP SCH (16:00)
[2020-06-01] MEDS ORDERED: DURAMORPH PF1 MG/ML 10ML AMP IV ONE (18:46)
[2020-06-01] MEDS ORDERED: ALBUMIN (HUMAN) 5% 250 ML IV ONE (18:46)
[2020-06-01] MEDS ORDERED: PROPOFOL 10 MG/ML 20ML VIAL IV ONE (18:48)
[2020-06-01] MEDS ORDERED: EPHEDRINE SULFATE 50 MG/ML AMPULE ONE (18:48)
[2020-06-01] MEDS ORDERED: MIDAZOLAM HCL 1 MG/ML 2ML VIAL ONE (18:51)
[2020-06-01] MEDS ORDERED: KETAMINE 50MG/ML SYRINGE 50 MG/ML DISP.SYRIN IV ONE (19:12)
[2020-06-01] MEDS ORDERED: CLINIMIX E 5%-15% 2,000 ML IV SCH (19:15)
[2020-06-01] MEDS ORDERED: ALBUMIN (HUMAN) 25% 100 ML IV ONE (19:32)
[2020-06-01] MEDS ORDERED: ROCURONIUM 10MG/1ML SYR 10 MG/ML ML ONE ×2 (20:29→21:18)
[2020-06-01] MEDS: ATORVASTATIN CALCIUM 40 MG TABLET PO SCH (21:00)
[2020-06-01] MEDS: LATANOPROST OP SCH (21:00)
[2020-06-01] MEDS ORDERED: SODIUM CHLORIDE 0.9% 1000ML 1,000 ML IV ONE (22:25)
[2020-06-01] MEDS: PROPOFOL 1000 MG/100 ML 100 ML IV SCH (22:26)
[2020-06-01] MEDS ORDERED: PROPOFOL 1000 MG/100 ML IV PRN (22:30)
[2020-06-01] MEDS: VANCOMYCIN 750MG + NS 250 ML IV SCH ×2 (22:38)
[2020-06-01 23:19] LABS: ABG BASE EXCESS 2.5 mmol/L (-2.0-3.0); ABG HCO3 26.2 mmol/L (21.0-28.0); ABG OXYGEN SATURATION 98.5 % (95.0-99.0); ABG PCO2 38 mmHg (32-45)
[2020-06-02] VITALS (49 sets, daily range): BP systolic 91–169; BP diastolic 39–83
[2020-06-02] MEDS: ZOSYN 3.375GM+NS 50ML 50 ML IV SCH ×4 (00:12→22:01)
[2020-06-02] MEDS: FUROSEMIDE 10 MG/ML 4ML VIAL IV SCH ×3 (00:13→22:01)
[2020-06-02 04:03] LABS: ABG OXYGEN SATURATION 97.9 % (95.0-99.0); ABG PCO2 34 mmHg (32-45)
[2020-06-02 05:03] LABS: BASOPHILS % (AUTO) 0.2 % (0.0-5.0); EOSINOPHILS % (AUTO) 0.7 % (0.0-8.0); HEMATOCRIT 21.3 % (36-48); LYMPHOCYTES % (AUTO) 9.5 % (21.0-51.0); MEAN CORPUSCULAR HEMOGLOBIN 28.6 pg (27.0-33.0); MEAN CORPUSCULAR HGB CONC 31.5 g/dL (32.0-36.0); MONOCYTES % (AUTO) 6.9 % (3.0-13.0); NEUTROPHILS % (AUTO) 75.3 % (40.0-77.0); NUCLEATED RED BLOOD CELLS 0.5 % (0.0-0.19); PLATELET COUNT (AUTO) 210 K/uL (130-400); RED BLOOD CELL COUNT(AUTO) 2.34 MIL/uL (4.00-5.50); RED CELL DISTRIBUTION WIDTH 19.9 % (11.0-15.5); WHITE BLOOD COUNT (AUTO) 10.2 K/uL (4.8-10.8)
[2020-06-02] MEDS: INSULIN HUMULIN R 100 UNIT/ML 3ML SQ SCH ×4 (05:17→18:00)
[2020-06-02 05:26] LABS: ALBUMIN 1.4 g/dL (3.5-5.0); BILIRUBIN,TOTAL 0.5 mg/dL (0.2-1.0); CREATININE 0.5 mg/dL (0.5-1.5); MAGNESIUM 1.4 mg/dL (1.80-2.40); PHOSPHORUS 1.9 mg/dL (2.5-4.9); POTASSIUM 3.3 mmol/L (3.5-5.1); TOTAL PROTEIN, SERUM 4.6 g/dL (6.0-8.3)
[2020-06-02] MEDS: ASPIRIN 81MG TAB.CHEW PO SCH (09:00)
[2020-06-02] MEDS: MORPHINE SULFATE 20MG/ML ORAL 0.25 ML PO SCH ×2 (09:00→21:00)
[2020-06-02] MEDS: CLOPIDOGREL BISULFATE 75 MG TAB PO SCH (09:00)
[2020-06-02] MEDS: FAMOTIDINE/PF 20 MG/2 ML VIAL IV SCH (09:16)
[2020-06-02] MEDS: FLUCONAZOLE 200 MG/NS 100 ML 100 ML IV SCH (09:16)
[2020-06-02] MEDS: FENTANYL CITRATE PF 50 MCG/1 ML 2ML VIAL IVP PRN (09:49)
[2020-06-02] MEDS: POTASSIUM CHLORIDE 20MEQ/100ML 100 ML IV PRN ×2 (13:55→15:29)
[2020-06-02] MEDS ORDERED: FENTANYL 2500MCG+NS 250ML 250 ML IV PRN (15:30)
[2020-06-02 15:44] LABS: HEMATOCRIT 26.1 % (36-48)
[2020-06-02 15:51] LABS: MAGNESIUM 1.5 mg/dL (1.80-2.40); POTASSIUM 4.2 mmol/L (3.5-5.1)
[2020-06-02] MEDS ORDERED: MAGNESIUM 2GM PREMIX 50ML 50 ML IV ONE (17:01)
[2020-06-02] MEDS: HONEY 1 APPL/ML TUBE TP SCH (17:44)
[2020-06-02] MEDS ORDERED: CLINIMIX E 5%-15% 2,000 ML IV SCH (18:15)
[2020-06-02] MEDS ORDERED: SODIUM CHLORIDE 0.9% 1000ML 1,000 ML IV ONE (18:37)
[2020-06-02] MEDS: ATORVASTATIN CALCIUM 40 MG TABLET PO SCH (21:00)
[2020-06-02] MEDS: VANCOMYCIN 1GM+NS 250ML 250 ML IV SCH (21:08)
[2020-06-02] MEDS: LATANOPROST OP SCH (21:08)
[2020-06-02] MEDS: PROPOFOL 1000 MG/100 ML 100 ML IV SCH (22:25)
[2020-06-03] VITALS (34 sets, daily range): BP systolic 119–189; BP diastolic 46–109
[2020-06-03 00:11] LABS: HEMATOCRIT 30.6 % (36-48)
[2020-06-03 03:57] LABS: BASOPHILS % (AUTO) 0.6 % (0.0-5.0); EOSINOPHILS % (AUTO) 1.8 % (0.0-8.0); HEMATOCRIT 28.3 % (36-48); LYMPHOCYTES % (AUTO) 8.5 % (21.0-51.0); MEAN CORPUSCULAR HEMOGLOBIN 29.1 pg (27.0-33.0); MEAN CORPUSCULAR HGB CONC 33.2 g/dL (32.0-36.0); MEAN CORPUSCULAR VOLUME 87.6 fL (79-99); MONOCYTES % (AUTO) 7.1 % (3.0-13.0); NEUTROPHILS % (AUTO) 72.9 % (40.0-77.0); NUCLEATED RED BLOOD CELLS 0.8 % (0.0-0.19); PLATELET COUNT (AUTO) 286 K/uL (130-400); RED BLOOD CELL COUNT(AUTO) 3.23 MIL/uL (4.00-5.50); RED CELL DISTRIBUTION WIDTH 18.2 % (11.0-15.5)
[2020-06-03 04:14] LABS: ALBUMIN 1.2 g/dL (3.5-5.0); BILIRUBIN,TOTAL 0.8 mg/dL (0.2-1.0); CREATININE 0.5 mg/dL (0.5-1.5); POTASSIUM 3.5 mmol/L (3.5-5.1); TOTAL PROTEIN, SERUM 5.4 g/dL (6.0-8.3)
[2020-06-03] MEDS: INSULIN HUMULIN R 100 UNIT/ML 3ML SQ SCH ×5 (06:00→23:10)
[2020-06-03] MEDS: ZOSYN 3.375GM+NS 50ML 50 ML IV SCH ×3 (06:01→22:13)
[2020-06-03] MEDS: POTASSIUM CHLORIDE 20MEQ/100ML 100 ML IV PRN (06:02)
[2020-06-03 06:28] LABS: HEMATOCRIT 29.4 % (36-48)
[2020-06-03] MEDS: CLOPIDOGREL BISULFATE 75 MG TAB PO SCH (09:00)
[2020-06-03] MEDS: MORPHINE SULFATE 20MG/ML ORAL 0.25 ML PO SCH ×2 (09:00→21:00)
[2020-06-03] MEDS: ASPIRIN 81MG TAB.CHEW PO SCH (09:00)
[2020-06-03] MEDS: FAMOTIDINE/PF 20 MG/2 ML VIAL IV SCH (11:32)
[2020-06-03] MEDS: FLUCONAZOLE 200 MG/NS 100 ML 100 ML IV SCH (11:32)
[2020-06-03] MEDS: VANCOMYCIN 1GM+NS 250ML 250 ML IV SCH ×2 (11:32→22:14)
[2020-06-03] MEDS: FUROSEMIDE 10 MG/ML 4ML VIAL IV SCH ×2 (11:33→22:13)
[2020-06-03 12:05] LABS: ABG BASE EXCESS 5.1 mmol/L (-2.0-3.0); ABG HCO3 30.3 mmol/L (21.0-28.0); ABG OXYGEN SATURATION 93.2 % (95.0-99.0); ABG PCO2 46 mmHg (32-45)
[2020-06-03] MEDS ORDERED: HYDROMORPHONE HCL 0.5 MG/0.5 ML ML ONE (14:25)
[2020-06-03] MEDS: HONEY 1 APPL/ML TUBE TP SCH (16:22)
[2020-06-03] MEDS: FENTANYL CITRATE PF 50 MCG/1 ML 2ML VIAL IVP PRN ×2 (17:57→22:53)
[2020-06-03] MEDS ORDERED: CLINIMIX E 5%-15% 2,000 ML IV SCH (18:30)
[2020-06-03 19:15] LABS: ABG BASE EXCESS 5.5 mmol/L (-2.0-3.0); ABG HCO3 32.3 mmol/L (21.0-28.0); ABG OXYGEN SATURATION 95.9 % (95.0-99.0); ABG PCO2 56 mmHg (32-45)
[2020-06-03] MEDS: ATORVASTATIN CALCIUM 40 MG TABLET PO SCH (22:10)
[2020-06-03] MEDS: GABAPENTIN 100 MG CAPSULE PO SCH (22:12)
[2020-06-03] MEDS: LATANOPROST OP SCH (22:29)
[2020-06-04] VITALS (24 sets, daily range): BP systolic 97–163; BP diastolic 51–88
[2020-06-04 04:11] LABS: BASOPHILS % (AUTO) 0.6 % (0.0-5.0); EOSINOPHILS % (AUTO) 1.6 % (0.0-8.0); LYMPHOCYTES % (AUTO) 8.2 % (21.0-51.0); MEAN CORPUSCULAR HEMOGLOBIN 28.2 pg (27.0-33.0); MEAN CORPUSCULAR HGB CONC 31.3 g/dL (32.0-36.0); MEAN CORPUSCULAR VOLUME 90.1 fL (79-99); MONOCYTES % (AUTO) 9.2 % (3.0-13.0); NEUTROPHILS % (AUTO) 74.3 % (40.0-77.0); NUCLEATED RED BLOOD CELLS 0.6 % (0.0-0.19); PLATELET COUNT (AUTO) 288 K/uL (130-400); RED BLOOD CELL COUNT(AUTO) 3.33 MIL/uL (4.00-5.50); RED CELL DISTRIBUTION WIDTH 18.2 % (11.0-15.5); WHITE BLOOD COUNT (AUTO) 9.9 K/uL (4.8-10.8)
[2020-06-04 04:25] LABS: ALBUMIN 1.2 g/dL (3.5-5.0); BILIRUBIN,TOTAL 0.6 mg/dL (0.2-1.0); CREATININE 0.5 mg/dL (0.5-1.5); MAGNESIUM 3.4 mg/dL (1.80-2.40); PHOSPHORUS 3.2 mg/dL (2.5-4.9); TOTAL PROTEIN, SERUM 5.4 g/dL (6.0-8.3)
[2020-06-04 04:44] LABS: POTASSIUM 2.6 mmol/L (3.5-5.1)
[2020-06-04] MEDS: POTASSIUM CHLORIDE 20MEQ/100ML 100 ML IV PRN ×4 (05:18→19:15)
[2020-06-04] MEDS: GABAPENTIN 100 MG CAPSULE PO SCH ×3 (05:18→21:27)
[2020-06-04] MEDS: ZOSYN 3.375GM+NS 50ML 50 ML IV SCH ×3 (05:18→21:50)
[2020-06-04] MEDS: INSULIN HUMULIN R 100 UNIT/ML 3ML SQ SCH ×3 (06:00→18:00)
[2020-06-04] MEDS: IPRATROPIUM/ALBUTEROL SULFATE 3 ML SOLUTION IH PRN ×2 (06:33→10:20)
[2020-06-04] MEDS: HYDROMORPHONE HCL 0.5 MG/0.5 ML ML IVP PRN ×3 (07:42→16:17)
[2020-06-04] MEDS: MORPHINE SULFATE 20MG/ML ORAL 0.25 ML PO SCH ×2 (09:00→21:00)
[2020-06-04] MEDS ORDERED: POTASSIUM CHLORIDE 20MEQ/100ML 100 ML IV PRN ×2 (09:15)
[2020-06-04] MEDS ORDERED: POTASSIUM CHLORIDE 20 MEQ ERTAB PO PRN (09:15)
[2020-06-04] MEDS ORDERED: POTASSIUM CHLORIDE 10% ELIXIR 20 MEQ/15 ML UDCUP PO PRN (09:15)
[2020-06-04] MEDS ORDERED: FUROSEMIDE 10 MG/ML 4ML VIAL IV SCH (10:15)
[2020-06-04] MEDS: FLUCONAZOLE 200 MG/NS 100 ML 100 ML IV SCH (10:23)
[2020-06-04] MEDS: FAMOTIDINE/PF 20 MG/2 ML VIAL IV SCH (10:23)
[2020-06-04] MEDS: CLOPIDOGREL BISULFATE 75 MG TAB PO SCH (10:24)
[2020-06-04] MEDS: ASPIRIN 81MG TAB.CHEW PO SCH (10:24)
[2020-06-04] MEDS: FUROSEMIDE 10 MG/ML 4ML VIAL IV SCH ×2 (10:34→21:27)
[2020-06-04] MEDS: VANCOMYCIN 1GM+NS 250ML 250 ML IV SCH ×2 (10:48→21:22)
[2020-06-04] MEDS ORDERED: OLANZAPINE 10MG/ML 1ML VIAL IM PRN (14:45)
[2020-06-04] MEDS: HONEY 1 APPL/ML TUBE TP SCH (16:15)
[2020-06-04] MEDS: FENTANYL CITRATE PF 50 MCG/1 ML 2ML VIAL IVP PRN (16:17)
[2020-06-04] MEDS: SPIRONOLACTONE 25 MG TAB PO SCH (21:21)
[2020-06-04] MEDS: ATORVASTATIN CALCIUM 40 MG TABLET PO SCH (21:21)
[2020-06-04] MEDS: LATANOPROST OP SCH (21:23)
[2020-06-05] VITALS (23 sets, daily range): BP systolic 97–162; BP diastolic 46–123
[2020-06-05] MEDS: IPRATROPIUM/ALBUTEROL SULFATE 3 ML SOLUTION IH PRN ×4 (00:23→18:53)
[2020-06-05] MEDS: POTASSIUM CHLORIDE 20MEQ/100ML 100 ML IV PRN (01:38)
[2020-06-05 05:20] LABS: BASOPHILS % (AUTO) 0.5 % (0.0-5.0); EOSINOPHILS % (AUTO) 1.4 % (0.0-8.0); HEMATOCRIT 28.5 % (36-48); LYMPHOCYTES % (AUTO) 9.9 % (21.0-51.0); MEAN CORPUSCULAR HEMOGLOBIN 28.1 pg (27.0-33.0); MEAN CORPUSCULAR HGB CONC 30.5 g/dL (32.0-36.0); MEAN CORPUSCULAR VOLUME 91.9 fL (79-99); MONOCYTES % (AUTO) 7.5 % (3.0-13.0); NEUTROPHILS % (AUTO) 76.8 % (40.0-77.0); NUCLEATED RED BLOOD CELLS 0.3 % (0.0-0.19); PLATELET COUNT (AUTO) 307 K/uL (130-400); RED CELL DISTRIBUTION WIDTH 17.8 % (11.0-15.5); WHITE BLOOD COUNT (AUTO) 10.4 K/uL (4.8-10.8)
[2020-06-05 05:41] LABS: ALBUMIN 1.2 g/dL (3.5-5.0); BILIRUBIN,TOTAL 0.5 mg/dL (0.2-1.0); CREATININE 0.6 mg/dL (0.5-1.5); MAGNESIUM 1.6 mg/dL (1.80-2.40); POTASSIUM 4.1 mmol/L (3.5-5.1); TOTAL PROTEIN, SERUM 5.7 g/dL (6.0-8.3)
[2020-06-05] MEDS: GABAPENTIN 100 MG CAPSULE PO SCH ×3 (05:47→21:06)
[2020-06-05] MEDS: ZOSYN 3.375GM+NS 50ML 50 ML IV SCH ×3 (05:48→21:17)
[2020-06-05] MEDS: INSULIN HUMULIN R 100 UNIT/ML 3ML SQ SCH ×4 (06:00→18:00)
[2020-06-05] MEDS: MAGNESIUM 2GM PREMIX 50ML 50 ML IV PRN (06:43)
[2020-06-05] MEDS: ASPIRIN 81MG TAB.CHEW PO SCH (08:36)
[2020-06-05] MEDS: SPIRONOLACTONE 25 MG TAB PO SCH ×2 (08:36→21:05)
[2020-06-05] MEDS: CLOPIDOGREL BISULFATE 75 MG TAB PO SCH (08:37)
[2020-06-05] MEDS: FAMOTIDINE/PF 20 MG/2 ML VIAL IV SCH (08:37)
[2020-06-05] MEDS: FLUCONAZOLE 200 MG/NS 100 ML 100 ML IV SCH (08:38)
[2020-06-05] MEDS: VANCOMYCIN 1GM+NS 250ML 250 ML IV SCH ×2 (08:38→20:52)
[2020-06-05] MEDS ORDERED: COMPOUND PO NARCOTIC 1 EACH PO SCH (08:45)
[2020-06-05] MEDS: FUROSEMIDE 10 MG/ML 4ML VIAL IV SCH ×2 (09:07→21:58)
[2020-06-05] MEDS: MORPHINE SULFATE 20MG/ML ORAL 0.25 ML PO SCH ×2 (09:07→21:05)
[2020-06-05] MEDS: HYDROMORPHONE HCL 0.5 MG/0.5 ML ML IVP PRN ×2 (14:14→17:25)
[2020-06-05] MEDS: HONEY 1 APPL/ML TUBE TP SCH (16:27)
[2020-06-05] MEDS: ATORVASTATIN CALCIUM 40 MG TABLET PO SCH (21:05)
[2020-06-05] MEDS: LATANOPROST OP SCH (21:07)
[2020-06-06] VITALS (24 sets, daily range): BP systolic 79–161; BP diastolic 37–75
[2020-06-06 00:36] LABS: POTASSIUM 3.6 mmol/L (3.5-5.1)
[2020-06-06] MEDS: POTASSIUM CHLORIDE 20MEQ/100ML 100 ML IV PRN (01:48)
[2020-06-06] MEDS: IPRATROPIUM/ALBUTEROL SULFATE 3 ML SOLUTION IH PRN ×2 (02:36→18:38)
[2020-06-06] MEDS: ZOSYN 3.375GM+NS 50ML 50 ML IV SCH ×3 (05:57→22:59)
[2020-06-06] MEDS: INSULIN HUMULIN R 100 UNIT/ML 3ML SQ SCH ×4 (06:00→18:00)
[2020-06-06] MEDS: GABAPENTIN 100 MG CAPSULE PO SCH ×3 (06:45→22:45)
[2020-06-06 08:05] LABS: BASOPHILS % (AUTO) 0.4 % (0.0-5.0); EOSINOPHILS % (AUTO) 1.1 % (0.0-8.0); HEMATOCRIT 26.8 % (36-48); LYMPHOCYTES % (AUTO) 13.8 % (21.0-51.0); MEAN CORPUSCULAR HEMOGLOBIN 27.8 pg (27.0-33.0); MEAN CORPUSCULAR HGB CONC 29.5 g/dL (32.0-36.0); MEAN CORPUSCULAR VOLUME 94.4 fL (79-99); MONOCYTES % (AUTO) 6.9 % (3.0-13.0); NEUTROPHILS % (AUTO) 73.9 % (40.0-77.0); PLATELET COUNT (AUTO) 332 K/uL (130-400); RED BLOOD CELL COUNT(AUTO) 2.84 MIL/uL (4.00-5.50); RED CELL DISTRIBUTION WIDTH 17.2 % (11.0-15.5); WHITE BLOOD COUNT (AUTO) 12.4 K/uL (4.8-10.8)
[2020-06-06 08:24] LABS: ALBUMIN 1.2 g/dL (3.5-5.0); BILIRUBIN,TOTAL 0.5 mg/dL (0.2-1.0); CREATININE 0.7 mg/dL (0.5-1.5); POTASSIUM 4.5 mmol/L (3.5-5.1); TOTAL PROTEIN, SERUM 5.5 g/dL (6.0-8.3)
[2020-06-06] MEDS: FLUCONAZOLE 200 MG/NS 100 ML 100 ML IV SCH (09:45)
[2020-06-06] MEDS: SPIRONOLACTONE 25 MG TAB PO SCH ×2 (09:45→22:42)
[2020-06-06] MEDS: VANCOMYCIN 1GM+NS 250ML 250 ML IV SCH ×2 (09:45→22:41)
[2020-06-06] MEDS: FAMOTIDINE/PF 20 MG/2 ML VIAL IV SCH (09:45)
[2020-06-06] MEDS: CLOPIDOGREL BISULFATE 75 MG TAB PO SCH (09:46)
[2020-06-06] MEDS: ASPIRIN 81MG TAB.CHEW PO SCH (09:46)
[2020-06-06] MEDS: MORPHINE SULFATE 20MG/ML ORAL 0.25 ML PO SCH ×2 (09:47→21:00)
[2020-06-06] MEDS: FUROSEMIDE 10 MG/ML 4ML VIAL IV SCH ×2 (09:48→22:45)
[2020-06-06] MEDS: HONEY 1 APPL/ML TUBE TP SCH (15:04)
[2020-06-06] MEDS: TRAMADOL HCL 50 MG TABLET PO PRN (15:05)
[2020-06-06] MEDS: LATANOPROST OP SCH (22:41)
[2020-06-06] MEDS: ATORVASTATIN CALCIUM 40 MG TABLET PO SCH (22:42)
[2020-06-07] VITALS (25 sets, daily range): BP systolic 93–161; BP diastolic 42–118
[2020-06-07] MEDS: TRAMADOL HCL 50 MG TABLET PO PRN ×2 (00:12→21:24)
[2020-06-07] MEDS: IPRATROPIUM/ALBUTEROL SULFATE 3 ML SOLUTION IH PRN ×4 (00:22→18:35)
[2020-06-07 05:06] LABS: ALBUMIN 1.2 g/dL (3.5-5.0); BILIRUBIN,TOTAL 0.4 mg/dL (0.2-1.0); CREATININE 0.7 mg/dL (0.5-1.5); POTASSIUM 3.6 mmol/L (3.5-5.1); TOTAL PROTEIN, SERUM 5.2 g/dL (6.0-8.3)
[2020-06-07 05:07] LABS: BASOPHILS % (AUTO) 0.4 % (0.0-5.0); MEAN CORPUSCULAR HGB CONC 30.3 g/dL (32.0-36.0); MEAN CORPUSCULAR VOLUME 92.4 fL (79-99); MONOCYTES % (AUTO) 7.1 % (3.0-13.0); NEUTROPHILS % (AUTO) 76.4 % (40.0-77.0); NUCLEATED RED BLOOD CELLS 0.2 % (0.0-0.19); PLATELET COUNT (AUTO) 334 K/uL (130-400); RED BLOOD CELL COUNT(AUTO) 2.25 MIL/uL (4.00-5.50); RED CELL DISTRIBUTION WIDTH 16.8 % (11.0-15.5); WHITE BLOOD COUNT (AUTO) 12.8 K/uL (4.8-10.8)
[2020-06-07 05:13] LABS: HEMATOCRIT 20.8 % (36-48)
[2020-06-07] MEDS: INSULIN HUMULIN R 100 UNIT/ML 3ML SQ SCH ×4 (06:00→18:00)
[2020-06-07] MEDS: ZOSYN 3.375GM+NS 50ML 50 ML IV SCH ×3 (06:37→22:11)
[2020-06-07] MEDS: GABAPENTIN 100 MG CAPSULE PO SCH ×3 (06:38→21:20)
[2020-06-07] MEDS: SPIRONOLACTONE 25 MG TAB PO SCH ×2 (08:16→21:19)
[2020-06-07] MEDS: CLOPIDOGREL BISULFATE 75 MG TAB PO SCH (08:16)
[2020-06-07] MEDS: FLUCONAZOLE 200 MG/NS 100 ML 100 ML IV SCH (08:16)
[2020-06-07] MEDS: VANCOMYCIN 1GM+NS 250ML 250 ML IV SCH ×2 (08:16→21:00)
[2020-06-07] MEDS: FAMOTIDINE/PF 20 MG/2 ML VIAL IV SCH (08:16)
[2020-06-07] MEDS: ASPIRIN 81MG TAB.CHEW PO SCH (08:16)
[2020-06-07] MEDS: FUROSEMIDE 10 MG/ML 4ML VIAL IV SCH ×2 (08:19→21:20)
[2020-06-07] MEDS: MORPHINE SULFATE 20MG/ML ORAL 0.25 ML PO SCH ×2 (09:00→21:00)
[2020-06-07 12:29] LABS: BASOPHILS % (AUTO) 0.4 % (0.0-5.0); EOSINOPHILS % (AUTO) 1.1 % (0.0-8.0); HEMATOCRIT 24.4 % (36-48); LYMPHOCYTES % (AUTO) 8.9 % (21.0-51.0); MEAN CORPUSCULAR HEMOGLOBIN 28.6 pg (27.0-33.0); MEAN CORPUSCULAR HGB CONC 31.1 g/dL (32.0-36.0); MEAN CORPUSCULAR VOLUME 91.7 fL (79-99); MONOCYTES % (AUTO) 6.2 % (3.0-13.0); NEUTROPHILS % (AUTO) 79.2 % (40.0-77.0); NUCLEATED RED BLOOD CELLS 0.4 % (0.0-0.19); PLATELET COUNT (AUTO) 358 K/uL (130-400); RED BLOOD CELL COUNT(AUTO) 2.66 MIL/uL (4.00-5.50); RED CELL DISTRIBUTION WIDTH 16.8 % (11.0-15.5); WHITE BLOOD COUNT (AUTO) 14.1 K/uL (4.8-10.8)
[2020-06-07] MEDS: HONEY 1 APPL/ML TUBE TP SCH (15:10)
[2020-06-07] MEDS: ATORVASTATIN CALCIUM 40 MG TABLET PO SCH (21:19)
[2020-06-07] MEDS: LATANOPROST OP SCH (21:22)
[2020-06-07 22:00] LABS: MAGNESIUM 1.9 mg/dL (1.80-2.40); POTASSIUM 3.5 mmol/L (3.5-5.1)
[2020-06-07] MEDS: POTASSIUM CHLORIDE 20MEQ/100ML 100 ML IV PRN (22:12)
[2020-06-08] VITALS (18 sets, daily range): BP systolic 96–167; BP diastolic 36–78
[2020-06-08] MEDS: MAGNESIUM 2GM PREMIX 50ML 50 ML IV PRN (00:19)
[2020-06-08] MEDS: IPRATROPIUM/ALBUTEROL SULFATE 3 ML SOLUTION IH PRN ×4 (02:37→19:09)
[2020-06-08] MEDS: POTASSIUM CHLORIDE 20MEQ/100ML 100 ML IV PRN (02:42)
[2020-06-08] MEDS: GABAPENTIN 100 MG CAPSULE PO SCH ×2 (06:00→13:09)
[2020-06-08] MEDS: INSULIN HUMULIN R 100 UNIT/ML 3ML SQ SCH ×4 (06:00→18:00)
[2020-06-08] MEDS: ZOSYN 3.375GM+NS 50ML 50 ML IV SCH (06:21)
[2020-06-08 06:24] LABS: BASOPHILS % (AUTO) 0.3 % (0.0-5.0); EOSINOPHILS % (AUTO) 1.8 % (0.0-8.0); HEMATOCRIT 22.4 % (36-48); MEAN CORPUSCULAR HEMOGLOBIN 28.2 pg (27.0-33.0); MEAN CORPUSCULAR HGB CONC 31.3 g/dL (32.0-36.0); MEAN CORPUSCULAR VOLUME 90.3 fL (79-99); MONOCYTES % (AUTO) 6.9 % (3.0-13.0); NEUTROPHILS % (AUTO) 78.1 % (40.0-77.0); NUCLEATED RED BLOOD CELLS 0.5 % (0.0-0.19); PLATELET COUNT (AUTO) 380 K/uL (130-400); RED BLOOD CELL COUNT(AUTO) 2.48 MIL/uL (4.00-5.50); RED CELL DISTRIBUTION WIDTH 16.8 % (11.0-15.5); WHITE BLOOD COUNT (AUTO) 12.1 K/uL (4.8-10.8)
[2020-06-08 06:42] LABS: ALBUMIN 1.2 g/dL (3.5-5.0); BILIRUBIN,TOTAL 0.5 mg/dL (0.2-1.0); CREATININE 0.6 mg/dL (0.5-1.5); POTASSIUM 3.7 mmol/L (3.5-5.1); TOTAL PROTEIN, SERUM 5.5 g/dL (6.0-8.3)
[2020-06-08] MEDS ORDERED: PANTOPRAZOLE SODIUM 40 MG TABLET.DR PO SCH (07:55)
[2020-06-08] MEDS: FLUCONAZOLE 200 MG/NS 100 ML 100 ML IV SCH (08:11)
[2020-06-08] MEDS: MORPHINE SULFATE 20MG/ML ORAL 0.25 ML PO SCH (08:12)
[2020-06-08] MEDS: CLOPIDOGREL BISULFATE 75 MG TAB PO SCH (08:13)
[2020-06-08] MEDS: SPIRONOLACTONE 25 MG TAB PO SCH (08:13)
[2020-06-08] MEDS: FAMOTIDINE/PF 20 MG/2 ML VIAL IV SCH (08:13)
[2020-06-08] MEDS: ASPIRIN 81MG TAB.CHEW PO SCH (08:13)
[2020-06-08] MEDS: FUROSEMIDE 10 MG/ML 4ML VIAL IV SCH (11:06)
[2020-06-08] MEDS ORDERED: MEROPENEM 1 GM VIAL IVP SCH (12:00)
[2020-06-08] MEDS: HONEY 1 APPL/ML TUBE TP SCH (16:22)
== END 2020-06-08 20:30 | DRG 853 ==
LOC: EDH 15:59 → UNDOADMIN 20:04 → 2CH 20:04 → EDHIP 20:04
PROVIDERS: ADMIT Internal Medicine; ATTEND Internal Medicine
PROC: 041H0JH Bypass Right External Iliac Artery to Right Femoral Artery with Synthetic Substitute, Open Approach (ICD-10-PCS; 2020-05-25)
PROC: 06HY33Z Insertion of Infusion Device into Lower Vein, Percutaneous Approach (ICD-10-PCS; 2020-05-25)
PROC: 5A1955Z Respiratory Ventilation, Greater than 96 Consecutive Hours (ICD-10-PCS; 2020-05-25)
PROC: 06BP0ZZ Excision of Right Saphenous Vein, Open Approach (ICD-10-PCS; 2020-05-25)
PROC: 04BK0ZZ Excision of Right Femoral Artery, Open Approach (ICD-10-PCS; 2020-05-25)
PROC: 30233N1 Transfusion of Nonautologous Red Blood Cells into Peripheral Vein, Percutaneous Approach (ICD-10-PCS; 2020-05-25)
PROC: 5A09357 Assistance with Respiratory Ventilation, Less than 24 Consecutive Hours, Continuous Positive Airway Pressure (ICD-10-PCS; 2020-05-25)
PROC: 04LK0ZZ Occlusion of Right Femoral Artery, Open Approach (ICD-10-PCS; principal; 2020-05-25 16:30)
PROC: 03150J6 Bypass Right Axillary Artery to Right Upper Leg Artery with Synthetic Substitute, Open Approach (ICD-10-PCS; 2020-05-27)
PROC: 04CK0ZZ Extirpation of Matter from Right Femoral Artery, Open Approach (ICD-10-PCS; 2020-05-27)
PROC: 5A09357 Assistance with Respiratory Ventilation, Less than 24 Consecutive Hours, Continuous Positive Airway Pressure (ICD-10-PCS; 2020-05-28)
PROC: 30233R1 Transfusion of Nonautologous Platelets into Peripheral Vein, Percutaneous Approach (ICD-10-PCS; 2020-05-30)
PROC: 5A09357 Assistance with Respiratory Ventilation, Less than 24 Consecutive Hours, Continuous Positive Airway Pressure (ICD-10-PCS; 2020-05-30)
PROC: 5A09357 Assistance with Respiratory Ventilation, Less than 24 Consecutive Hours, Continuous Positive Airway Pressure (ICD-10-PCS; 2020-05-31)
PROC: 0Y6C0Z3 Detachment at Right Upper Leg, Low, Open Approach (ICD-10-PCS; 2020-06-01)
PROC: 0QPB04Z Removal of Internal Fixation Device from Right Lower Femur, Open Approach (ICD-10-PCS; 2020-06-01)
PROC: 5A1945Z Respiratory Ventilation, 24-96 Consecutive Hours (ICD-10-PCS; 2020-06-01)
PROC: 5A09357 Assistance with Respiratory Ventilation, Less than 24 Consecutive Hours, Continuous Positive Airway Pressure (ICD-10-PCS; 2020-06-03)
PROC: 5A09357 Assistance with Respiratory Ventilation, Less than 24 Consecutive Hours, Continuous Positive Airway Pressure (ICD-10-PCS; 2020-06-04)
PROC: 5A0935A Assistance with Respiratory Ventilation, Less than 24 Consecutive Hours, High Flow/Velocity Cannula (ICD-10-PCS; 2020-06-04)
PROC: 5A09357 Assistance with Respiratory Ventilation, Less than 24 Consecutive Hours, Continuous Positive Airway Pressure (ICD-10-PCS; 2020-06-05)
PROC: 5A09457 Assistance with Respiratory Ventilation, 24-96 Consecutive Hours, Continuous Positive Airway Pressure (ICD-10-PCS; 2020-06-06)
PROC: 5A09357 Assistance with Respiratory Ventilation, Less than 24 Consecutive Hours, Continuous Positive Airway Pressure (ICD-10-PCS; 2020-06-07)
DX: A41.9 Sepsis, unspecified organism (principal); J18.9 Pneumonia, unspecified organism; J96.00 Acute respiratory failure, unspecified whether with hypoxia or hypercapnia; I97.618 Postprocedural hemorrhage of a circulatory system organ or structure following other circulatory system procedure; T81.31XA Disruption of external operation (surgical) wound, not elsewhere classified, initial encounter; B49 Unspecified mycosis; E87.0 Hyperosmolality and hypernatremia; G93.40 Encephalopathy, unspecified; I74.3 Embolism and thrombosis of arteries of the lower extremities; J81.1 Chronic pulmonary edema; N39.0 Urinary tract infection, site not specified; D62 Acute posthemorrhagic anemia; E11.52 Type 2 diabetes mellitus with diabetic peripheral angiopathy with gangrene; F17.203 Nicotine dependence unspecified, with withdrawal; G72.81 Critical illness myopathy; R65.20 Severe sepsis without septic shock; I27.20 Pulmonary hypertension, unspecified; I48.91 Unspecified atrial fibrillation; J98.6 Disorders of diaphragm; Z20.828 Contact with and (suspected) exposure to other viral communicable diseases; N19 Unspecified kidney failure; E78.00 Pure hypercholesterolemia, unspecified; E78.5 Hyperlipidemia, unspecified; Y83.1 Surgical operation with implant of artificial internal device as the cause of abnormal reaction of the patient, or of later complication, without mention of misadventure at the time of the procedure; I10 Essential (primary) hypertension; I27.21 Secondary pulmonary arterial hypertension; I99.8 Other disorder of circulatory system; R53.81 Other malaise; I25.5 Ischemic cardiomyopathy; E87.6 Hypokalemia; L98.429 Non-pressure chronic ulcer of back with unspecified severity; N61.0 Mastitis without abscess; Y83.8 Other surgical procedures as the cause of abnormal reaction of the patient, or of later complication, without mention of misadventure at the time of the procedure; Z95.3 Presence of xenogenic heart valve; J98.4 Other disorders of lung; Z86.718 Personal history of other venous thrombosis and embolism; Z86.711 Personal history of pulmonary embolism; Z79.899 Other long term (current) drug therapy; Z79.84 Long term (current) use of oral hypoglycemic drugs; Z79.82 Long term (current) use of aspirin; Z79.51 Long term (current) use of inhaled steroids; Z79.02 Long term (current) use of antithrombotics/antiplatelets; Z74.01 Bed confinement status
CPT/HCPCS: 36415; 36430; 36600; 71045; 73502; 73552; 73560; 73620; 76641; 76882; 80048; 80053; 80202; 81001; 82435; 82550; 82803; 82947; 82948; 83605; 83735; 83880; 84100; 84132; 84145; 84295; 85014; 85018; 85025; 85027; 85610; 85730; 86850; 86900; 86901; 86922; 86923; 87040; 87070; 87077; 87088; 87186; 87426; 92610; 93005; 93306; 93926; 93978; 94002; 94003; 94640; 94660; 97039; 99291; A4344; A4606; A6250; C1757; G0378; J0171; J0330; J0690; J1170; J1450; J1644; J1815; J1940; J2185; J2250; J2274; J2405; J2543; J2704; J2720; J3010; J3370; J3475; J3480; J3490; J7030; J7040; J7050; J7070; P9016; P9034; P9045; P9047